=== PATIENT | female | born 1990 ===

== ENCOUNTER 2020-01-31 05:51 | Inpatient (IN) ==
[2020-01-31] MEDS ORDERED: Dexamethasone IV 4 MG/ML VIAL 1 ml VIAL IV SLOW PU ONE (06:00)
[2020-01-31] MEDS ORDERED: Sodium Citrate/Citric Acid LIQ 15 ML UDC PO ONE (06:00)
[2020-01-31] MEDS ORDERED: Buffered Lidocaine 1% SYRIN 1 ml INTRADERM ONE (06:00)
[2020-01-31] MEDS ORDERED: Famotidine IV 10 MG/ML 2 ml VIAL (20 mg) IV ONE (06:00)
[2020-01-31] MEDS ORDERED: Sodium Citrate/Citric Acid LIQ 15 ML UDC ONE (06:46)
[2020-01-31] MEDS ORDERED: ceFOXitin 2 GM IVPREMIX 2 GM/50 ML BAG ONE (06:46)
[2020-01-31] MEDS ORDERED: Sodium Chloride 0.9% 10 ML ONE (07:28)
[2020-01-31] MEDS ORDERED: fentaNYL 100 mcg/2 ml 50 MCG/ML VIAL ONE (07:28)
[2020-01-31] MEDS ORDERED: EPHEDrine (Pressors) 50 MG/ML VIAL ONE (07:28)
[2020-01-31] MEDS ORDERED: Phenylephrine 40 mcg/mL 10mL (400mcg) SYRINGE ONE (07:29)
[2020-01-31] MEDS ORDERED: Morphine PF AMP (0.5MG/ML) 5 MG/10 ML AMP ONE (07:32)
[2020-01-31] MEDS ORDERED: Oxytocin 10 UNITS/ML 1 ML VIAL ONE ×2 (07:35→09:22)
[2020-01-31] MEDS ORDERED: Glycopyrrolate IV 0.2 MG/ML 1 ML VIAL ONE (07:36)
[2020-01-31] MEDS ORDERED: Dexamethasone IV 4 MG/ML VIAL 1 ml VIAL ONE (07:40)
[2020-01-31] MEDS: Lactated Ringers 1000 ml BAG 1,000 ML IV SCH ×2 (07:44→07:48)
[2020-01-31 08:25] LABS: Urine Benzodiazepine Screen None Detected (None Detect); Urine Opiates Screen None Detected (None Detect)
[2020-01-31] MEDS ORDERED: diPHENhydraMINE IV 50 MG/ML 1 ml VIAL (BENADRYL) IV PRN (09:09)
[2020-01-31] MEDS ORDERED: Naloxone 4 mg VIAL (10 ml) 2 MG in NS 0.9% 250 ml 250 ML IV PRN (09:09)
[2020-01-31] MEDS ORDERED: Naloxone 0.4 mg VIAL 0.4 mg/ml 1 ml VIAL IV PRN (09:09)
[2020-01-31] MEDS ORDERED: Ondansetron 4 mg VIAL 2 MG/ML 2 ml VIAL IV PRN (09:09)
[2020-01-31] MEDS ORDERED: Glycerin ADULT 2.4 gm SUPP PR PRN (09:37)
[2020-01-31] MEDS ORDERED: Witch Hazel PAD JAR TOPICAL PRN (09:37)
[2020-01-31] MEDS ORDERED: Dibucaine 1% OINT 28.35 GM TUBE PR PRN (09:37)
[2020-01-31] MEDS ORDERED: Oxytocin in LR 20 UNITS/1,000 ML BAG IVPB SCH (10:00)
[2020-01-31] MEDS ORDERED: Lidocaine 1% MPF 5 ML VIAL ONE (17:54)
[2020-02-01 08:43] LABS: ABS Eosinophils 0.1 10^3/ul (0-0.6); ABS Lymphocytes 3.9 10^3/ul (1.0-4.8); ABS Monocytes 0.8 10^3/ul (0-0.8); Eosinophil % 0.8 %; Hematocrit 29 % (35-47); Hemoglobin 9.8 g/dL (12.0-16.0); Lymphocyte % 24.6 %; Mean Corpuscular HGB Conc 34 g/dL (31-36); Mean Corpuscular Hemoglobin 30 pg (27-31); Mean Corpuscular Volume 88 fL (80-97); Platelet Count 201 10^3/uL (150-450); Red Blood Count 3.29 10^6 /uL (3.70-4.87); Red Cell Distribution Width 15 % (10-15)
[2020-02-02 07:43] VITALS: BP 118/66
[2020-02-02] MEDS ORDERED: Influenza VAC *QUAD* 2020-21* 0.5 ML SYRINGE IM ONE (10:00)
== END 2020-02-02 13:45 | disposition home or self-care (01) | DRG 788 ==
LOC: MCHOB 05:51
PROVIDERS: ADMIT Obstetrics & Gynecology; ATTEND Obstetrics & Gynecology